=== PATIENT | female | born 1990 | race Two or more races ===

== ENCOUNTER 2021-06-13 13:36 | Emergency (ER) | payer OTHER ==
[~2021-06-13] VITALS: Ht 162.6 cm; Wt 59.0 kg
[2021-06-13 13:39] VITALS: BP 118/65
--- NOTE | 2021-06-13 13:55 | NUR ---
Pt presents to ED for lower abdominal pain x4 days and intermittent vaginal itchiness x several weeks. Pt seen at urgent care today and referred ED to rule out PID. Pt denies N/V/D. Pt currently denies abdominal pain. Pt denies vaginal bleeding and vaginal discharge. Pt denies urinary symtpoms. Pt awake and alert. A&O x4. Bed in lowest position, bedrail up x1, hob elevated. Waiting for ERMD to evaluate pt.
--- NOTE | 2021-06-13 14:05 | NUR ---
TRISHA Beckwith evaluating pt at bedside
--- NOTE | 2021-06-13 14:50 | NUR ---
Pelvic exam tray set up
--- NOTE | 2021-06-13 15:04 | NUR ---
Female Business Support Associate accompanied female patient for Pelvic Exam by ANISHA Alexandre
--- NOTE | 2021-06-13 15:08 | NUR ---
WET MOUNT AND VAGINAL CULTURES SAMPLES WALKED TO MARINA
[2021-06-13] MEDS ORDERED: MICO100S9 VG (15:46)
--- NOTE | 2021-06-13 15:55 | NUR ---
Patient discharged with v/s stable. Written and verbal after care instructions given and explained. Patient alert, oriented and verbalized understanding of instructions. Ambulatory with steady gait. All questions addressed prior to discharge. ID band removed. Patient advised to follow up with PMD. Rx of Miconazole Nitrate given. Patient educated on indication of medication including possible reaction and side effects. Opportunity to ask questions provided and answered.
== END 2021-06-13 15:55 | disposition home or self-care (01) ==
LOC: MED 13:36
DX: N76.0 Acute vaginitis (principal); Z79.899 Other long term (current) drug therapy
CPT/HCPCS: 81002; 81025; 87070; 87210; 99283

== ENCOUNTER 2023-08-25 07:08 | Day surgery (SDC) | payer OTHER ==
[~2023-08-25] VITALS: Ht 160 cm; Wt 60.3 kg
[~2023-08-25 07:08] MED LIST: MICO100S9 VG
[2023-08-25] MEDS ORDERED: fentaNYL citrate 0.05 MG/ML VIAL ONE (08:45)
[2023-08-25] MEDS ORDERED: LIDOCAINE 2% 100 MG/5 ML UJET TP ONE (08:46)
[2023-08-25] MEDS ORDERED: MIDAZOLAM 5 MG/5 ML VIAL ONE (08:46)
[2023-08-25] MEDS ORDERED: MIDAZOLAM 2 MG/2 ML VIAL ONE (09:30)
[2023-08-25] MEDS ORDERED: MIDAZOLAM 2 MG/2 ML VIAL IV ONE (09:50)
[2023-08-25] MEDS ORDERED: MIDAZOLAM 2 MG/2 ML VIAL IV SCH (10:00)
== END 2023-08-25 10:02 | disposition home or self-care (01) ==
LOC: MOR 07:08 → MMU 07:09 → MOR 10:02
PROVIDERS: ATTEND Internal Medicine Gastroenterology
DX: R14.0 Abdominal distension (gaseous) (principal); K64.1 Second degree hemorrhoids; I85.00 Esophageal varices without bleeding; K30 Functional dyspepsia; K21.9 Gastro-esophageal reflux disease without esophagitis; Z79.899 Other long term (current) drug therapy
CPT/HCPCS: 43235; 45330; J2250; J3010